=== PATIENT | female | born 1980 | race Caucasian/White ===

== ENCOUNTER → 2020-06-13 10:00 | Outpatient (BNVA) | payer OTHER, SELFPAY | PROVIDERS: PCP Nurse Practitioner Women's Health; Visit Provider Family Medicine | DX: Z13.6 Encounter for screening for cardiovascular disorders (principal); E55.9 Vitamin D deficiency, unspecified; R63.5 Abnormal weight gain | CPT/HCPCS: 80053; 80061; 82306; 84443; 85025 ==

== ENCOUNTER 2020-06-21 11:33 | Outpatient (CLI) | payer OTHER, SELFPAY ==
[2020-06-21 11:41] VITALS: BMI 30.2
--- NOTE | 2020-06-21 11:41 | ECG_ITS ---
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 Interpretive Statements NAME OF STUDY: TREADMILL STRESS TEST INDICATION: Chest Pain, PROCEDURE: At the baseline, the patient's blood pressure was 126/85 with a heart rate of 77. The baseline electrocardiogram showed normal sinus rhythm with normal ST-Ts.. The patient exercised for 8 minutes and 14 seconds on a standard Dannie protocol. Patient attained a maximum heart rate of 165 beats per minute( 91 % of the maximum predicted heart rate) with a blood pressure at the peak exercise of pain 157/78 mm Hg. The EKG at the peak exercise revealed no significant changes. Patient did not have any chest pain or any significant cardiac arrhythmias with the exercise During the recovery phase, there were no new changes. Blood pressure at the end of the recovery phase was 123/63 mm Hg with a heart rate of 98 per minute. CONCLUSION: 1. Normal EKG response to treadmill exercise 2. No exercise-induced chest pain or cardiac arrhythmia 3. Fair exercise tolerance, attained a maximum of 10.2 METs Electronically Signed On 06-24-2020 16:36:09 CDT by Peterson Barroso M.D. [id number]
--- NOTE | 2020-06-21 11:54 | USCV_ITS ---
Marti Joel Age: 40 Gender: F : 1980 Exam Date: 06/21/2020 12:38 Ordering Phys: Peterson Barroso MD ([email or web address]) Technologist: David Raymond Exam Location: [facility] [place] Indication: CHEST PAIN BP: 123 / 70 HR: 89 Rhythm: Sinus Technical Quality: Fair MEASUREMENTS (Male / Female) Normal Values 2D ECHO LV Diastolic Diameter PLAX 3.8 cm 4.2 - 5.9 / 3.9 - 5.3 cm LV Systolic Diameter PLAX 2.3 cm IVS Diastolic Thickness 1.0 cm 0.6 - 1.0 / 0.6 - 0.9 cm IVS Systolic Thickness 1.2 cm LVPW Diastolic Thickness 0.9 cm 0.6 - 1.0 / 0.6 - 0.9 cm LVPW Systolic Thickness 1.1 cm LVOT Diameter 2.3 cm LV Ejection Fraction 2D Teich 72.2 % LA Diameter 3.3 cm LA Width 3.5 cm LA Height 5.1 cm RA Width 3.4 cm RA Height 4.8 cm M-MODE LV Diastolic Diameter MM 4.7 cm 4.2 - 5.9 / 3.9 - 5.3 cm LV Systolic Diameter MM 3.2 cm LV Ejection Fraction MM Teich 61.0 % IVS Diastolic Thickness MM 1.0 cm 0.6 - 1.0 / 0.6 - 0.9 cm IVS Systolic Thickness MM 1.4 cm LVPW Diastolic Thickness MM 1.2 cm 0.6 - 1.0 / 0.6 - 0.9 cm LVPW Systolic Thickness MM 2.0 cm RV Diastolic Diameter MM 1.4 cm Aortic Annulus Diameter 3.7 cm LA Ao Ratio MM 1.0 MV E Point Septal Separation 0.9 cm DOPPLER AV Peak Velocity 125.0 cm/s LVOT Peak Velocity 96.0 cm/s AV Area Cont Eq vti 3.4 cm squared AV Area Cont Eq pk 3.1 cm squared MV Area PHT 5.0 cm squared Mitral E to A Ratio 1.1 MV E' Velocity 14.0 cm/s Mitral E to MV E' Ratio 4.6 Mitral E to LV E' Lateral Ratio 4.4 Mitral E to LV E' Septal Ratio 4.9 TR Peak Velocity 166.0 cm/s TR Peak Gradient 11.0 mmHg TV Peak E Velocity 108.0 cm/s Right Atrial Pressure 3.0 mmHg Pulmonary Artery Systolic Pressu 14.0 mmHg PV Peak Velocity 110.0 cm/s FINDINGS Left Ventricle Normal left ventricular size and systolic function, EF 72%. No gross wall motion normalities.Grade I/IV diastolic dysfunction (abnormal relaxation filling pattern), normal to mildly elevated filling pressures. Right Ventricle The right ventricle is normal in size and function. Right Atrium The right atrium is normal in size. Left Atrium The left atrium is normal in size. Mitral Valve Structurally normal mitral valve without significant stenosis or prolapse. There is no mitral regurgitation. Aortic Valve Thickened aortic valve. Tricuspid Valve Trace tricuspid valve regurgitation. Pulmonic Valve Not visualized well Pericardium Normal pericardium without effusion. Aorta Normal ascending aorta dimension. CONCLUSIONS Normal left ventricular size and systolic function, EF 72%. No gross wall motion normalities. Grade I/IV diastolic dysfunction (abnormal relaxation filling pattern), normal to mildly elevated filling pressures. Structurally normal mitral valve without significant stenosis or prolapse. There is no mitral regurgitation. Thickened aortic valve. Trace tricuspid valve regurgitation. There is no pericardial effusion. There are no intracardiac masses. No previous study is available for comparison. Dr Peterson Barroso MD FACC (Electronically Signed) Final Date: 21 June 2020 17:14 S
[2020-06-21 12:31] VITALS: BP 123/63; PULSE 96
== END 2020-06-21 11:34 | disposition home or self-care (01) ==
LOC: CDL 11:36
PROVIDERS: PCP Nurse Practitioner Women's Health; Visit Provider Internal Medicine Cardiovascular Disease
DX: R07.9 Chest pain, unspecified (principal); I08.2 Rheumatic disorders of both aortic and tricuspid valves
CPT/HCPCS: 93017; 93306

== ENCOUNTER → 2020-06-24 12:59 | Outpatient (BNVA) | payer OTHER, SELFPAY | PROVIDERS: PCP Nurse Practitioner Women's Health; Visit Provider Family Medicine | DX: Z20.828 Contact with and (suspected) exposure to other viral communicable diseases (principal) | CPT/HCPCS: 87635 ==

== ENCOUNTER 2021-04-01 15:21 | Emergency (ER) | payer OTHER, SELFPAY ==
[2021-04-01 15:26] VITALS: BP 147/86; PULSE 74; RESP 16; TEMP 36.2; O2SAT 100; BMI 29.3
--- NOTE | 2021-04-01 15:28 | ECG_ITS ---
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
--- NOTE | 2021-04-01 15:28 | XRR_ITS ---
PROCEDURE INFORMATION: Exam: XR Chest Exam date and time: 04/01/2021 3:28 PM Age: 40 years old Clinical indication: Pain; Angina pectoris; Additional info: Cp TECHNIQUE: Imaging protocol: XR of the chest. Views: 1 view. Total images: 1 COMPARISON: No relevant prior studies available. FINDINGS: Lungs: No visible active interstitial or alveolar airspace disease. Pleural spaces: Unremarkable. No pleural effusion. No pneumothorax. Heart/Mediastinum: Unremarkable. No cardiomegaly. Bones/joints: Unremarkable. XR/XR chest 1V portable [id number] IMPRESSION: Nonacute.
[2021-04-01 15:53] LABS: Basophils % 0.2 %; Eosinophils # 0.2 10^3/uL (0.0-0.8); Hematocrit 41.2 % (37.0-47.0); Hemoglobin 13.8 g/dL (11.5-15.3); Lymphocytes # 3.6 10^3/uL (0.8-4.8); Lymphocytes % 41.6 %; Mean Corpuscular HGB Conc 33.5 g/dL (30.0-36.0); Mean Corpuscular Hemoglobin 32.5 pg (28.0-34.0); Mean Corpuscular Volume 97.2 fL (81-99); Mean Platelet Volume 10.2 fL (7.4-10.4); Monocytes # 0.5 10^3/uL (0.2-0.9); Monocytes % 5.7 %; Neutrophils # 4.36 10^3/uL (1.8-7.7); Neutrophils % 50.3 %; Nucleated Red Blood Cells % 0 %; Platelet Count 250 10^3/cmm (130-400); Red Blood Count 4.24 10^6/uL (4.1-5.3); Red Cell Distribution Width 13.2 % (12.1-15.1); White Blood Count 8.7 10^3/uL (4.0-10.0)
[2021-04-01 16:09] LABS: HCG Qualitative Urine. Negative (Negative)
--- NOTE | 2021-04-01 16:09 | ED_ITS ---
HPI - Chest Pain General: Chief Complaint: Chest Pain Stated Complaint: chest pain Time Seen by Provider: 04/01/21 15:29 History of Present Illness: HPI narrative: Patient is a 40-year-old female with past medical history anxiety comes to the ER complaining of bilateral chest pain like a strip over the lower part of her chest which radiated to her neck bilaterally and her back bilaterally. She says she took four baby aspirin's prior to arrival. She last had an episode of this in April of last year. She saw cardiology in the fall and had a negative stress test and echocardiogram showed grade 1 diastolic dysfunction. She also saw Dr. Barroso a couple weeks ago who recommended no intervention unless she had more chest pain. Upon my exam she says her chest pain resolved when she arrived to the ER. She has no chest pain at the moment. She does says she has a headache and when they were taking her back to the room she has peripheral vision loss on the left side. She says she occasionally gets migraines and has strokelike symptoms with them. Associated symptoms: Deny abdominal pain, dyspnea or palpitations Review of Systems General: Reports: 10 or more systems reviewed and unremarkable except in HPI and below Const: Denies: fatigue Eyes: Denies: change in vision, blurry vision or eye redness ENMT: Denies: throat pain, swelling of lips/tongue, ear or mastoid pain or nasal congestion Card: Denies: chest pain, palpitations, irregular heart rhythm, edema, dyspnea on exertion or orthopnea Resp: Denies: dyspnea, productive cough or non-productive cough GI: Denies: abdominal pain, diarrhea or GI cramping : Denies: flank pain, difficulty voiding, urinary frequency or urinary urgency Musc: Denies: neck pain, back pain, extremity pain, joint pain, joint redness, limited range of motion or muscle weakness Skin/Breast: Denies: rash, pruritus, erythema, skin pain or skin tenderness Neuro: Reports: headache(s); Denies: numbness in extremities, weakness in extremities, sensory changes, difficulty walking, dizziness, confusion or Slurred speech present Psych: Denies: anxiety or depression Endo: Denies: polyuria All/Imm: Denies: urticaria, throat swelling or tongue swelling PFSH ED PFSH: Medical History Anxiety Atypical chest pain Endometriosis Left ventricular diastolic dysfunction Migraine No pertinent past medical history neghx: htn,dm,thyroid,dvt/pe PCP: Dr. Chen Smoking Surgical History H/O exploratory laparotomy (~01/10/07) Dx laparascopy, left oophorectomy, ablation of endometriosis. Findings: Dermoid cyst of left ovary, endometriosis on the posterior surface of the cervix. H/O removal of cyst Family History Mother Hypercholesteremia Ovarian cancer dx age 36 Uterine cancer dx age 36 Clotting disorder Bleeding disorder Stroke Cancer Lung disease Grandmother Stroke Paternal CAD (coronary artery disease) Family/Other Cancer Father Dementia Lung disease Denies family history of Colon cancer Diabetes Chronic kidney disease (CKD) Breast cancer Suicide Anesthesia complication Hypertension Thyroid disease Physical Exam Const: COMMON NORMALS: no acute distress, average body habitus, patient oriented x3, no limitations, healthy appearing, alert and well nourished GENERAL APPEARANCE: cooperative, comfortable, well kempt, well developed and anxious ORIENTATION/CONSCIOUSNESS: Yes awake, Yes oriented to person, Yes oriented to place and Yes oriented to time HENMT: COMMON NORMALS: normocephalic, external ears normal and Normal external nose present HEAD & SCALP: normal to inspection and normocephalic NOSE: Normal external nose present EXTERNAL EAR: Yes external ears normal MOUTH: Normal oral and palatal mucosa present THROAT: posterior oropharynx normal Eye: COMMON NORMALS: Equal, round and reactive pupils present and EOMs intact bilaterally GENERAL EYE: appearance normal, both eyes and all related structures PUPIL: Yes Equal, round and reactive pupils present Neck/C-Spine: COMMON NORMALS: full ROM, no lymphadenopathy, no meningeal signs and no JVD GENERAL: Yes normal visual inspection Lymph: LYMPHATIC: no lymphadenopathy noted Chest: COMMONS NORMALS: normal inspection of the chest and normal palpation of entire chest wall Resp: COMMON NORMALS: normal respiratory effort, No retractions, No use of accessory muscles, clear to auscultation bilaterally and percussion normal EFFORT & INSPECTION: Yes able to speak in complete sentences AUSCULTATION: clear to auscultation bilaterally PERCUSSION: percussion normal Cardio: COMMON NORMALS: no JVD, regular rate, regular rhythm, S1 normal heart sound present, S2 normal heart sound present and Peripheral pulses 2+ throughout RATE: regular rate RHYTHM: regular rhythm HEART SOUNDS: S1 normal heart sound present and S2 normal heart sound present PERIPHERAL PULSES: Peripheral pulses 2+ throughout GI: COMMON NORMALS: Normal to inspection, nondistended, normoactive bowel sounds present, Soft to palpation, non-tender and no masses INSPECTION: Yes normal to inspection PALPATION: Yes Soft to palpation : COMMON NORMALS: Yes no CVA tenderness BLADDER/KIDNEY EXAM: Yes no CVA tenderness Back/Pelvis: COMMON NORMALS: no CVA tenderness, thoracic and lumbar spine normal to inspection, no thoracic nor lumbar tenderness and thoraco-lumbar ROM normal Extremity: COMMON NORMALS: normal to inspection, full ROM, capillary refill normal, no joint enlargement and no pedal edema GENERAL: Yes normal exam except as noted Neuro: COMMON NORMALS: patient oriented x3, CN's II-XII intact bilaterally, moves all extremities, no focal motor deficits, no sensory deficits noted and gait normal SENSORIUM/ORIENTATION: Yes alert, Yes oriented to person, Yes oriented to place and Yes oriented to time MENINGEAL SIGNS: Yes no meningeal signs Psych: COMMON NORMALS: mental status grossly normal, Normal thought process present, cooperative, normal affect and speech normal APPEARANCE: Yes well kempt ATTITUDE: Yes calm SPEECH: Yes normal speech THOUGHT PROCESS: Normal thought process present Skin: COMMON NORMALS: no rashes or lesions noted GENERAL SKIN EXAM: no rashes or lesions noted Course Vital Signs: Vital signs: Vital Signs Temperature 97.1 F L 04/01/21 15:26 Pulse Rate 74 04/01/21 19:57 Respiratory Rate 20 H 04/01/21 19:57 Blood Pressure 148/83 04/01/21 19:57 Pulse Oximetry 100 04/01/21 19:57 MDM - Chest Pain MDM Narrative: Medical decision making narrative: Patient came in complaining of atypical chest pain. It resolved before I even saw her. She also complained of headache with loss of peripheral vision on the left side. This also resolved within a few minutes after arrival. Likely a migraine. She says she has migraines with strokelike symptoms. She has never seen a neurologist. I placed a case management referral to help her get in with Dr. Ramirez. Also discussed with Dr. Barroso who recommended no acute intervention as her work-up is negative. Recommended he call her clinic tomorrow and get an appointment with him. ER with worsening symptoms at any time Lab Data: Labs: Lab Results 04/01/21 04/01/21 04/01/21 Range/Units 15:38 15:38 15:38 WBC 8.7 (4.0-10.0) 10^3/ uL RBC 4.24 (4.1-5.3) 10^6/u L Hgb 13.8 (11.5-15.3) g/dL Hct 41.2 (37.0-47.0) % MCV 97.2 (81-99) fL MCH 32.5 (28.0-34.0) pg MCHC 33.5 (30.0-36.0) g/dL RDW 13.2 (12.1-15.1) % Plt Count 250 (130-400) 10^3/c mm MPV 10.2 (7.4-10.4) fL Neut % (Auto) 50.3 % Lymph % (Auto) 41.6 % [place] % (Auto) 5.7 % Eos % (Auto) 2.0 % Baso % (Auto) 0.2 % Neut # (Auto) 4.36 (1.8-7.7) 10^3/u L Lymph # (Auto) 3.6 (0.8-4.8) 10^3/u L [place] # (Auto) 0.5 (0.2-0.9) 10^3/u L Eos # (Auto) 0.2 (0.0-0.8) 10^3/u L Baso # (Auto) 0.0 (0.0-0.1) 10^3/u L Nucleated RBC % (a uto) 0 % Nucleated RBCs # 0.0 /100WBC D-Dimer (0-0.59) ug/mIFE U Sodium Cancelled Potassium Cancelled Chloride Cancelled Carbon Dioxide Cancelled Anion Gap Cancelled BUN Cancelled Creatinine Cancelled GFR Calculation Cancelled Glucose Cancelled Calculated Osmolal ity Cancelled Calcium Cancelled Total Bilirubin Cancelled AST Cancelled ALT Cancelled Alkaline Phosphata se Cancelled Troponin T Baselin e Cancelled Troponin T 120 Min chene[place] (0-10) ng/L Delta Troponin T (0-10) ABS# Total Protein Cancelled Albumin Cancelled Globulin Cancelled HCG, Qual (Negative) Urine Color (Yellow) Urine Appearance (CLEAR) Urine pH (5-7) Ur Specific Gravit y (1.005-1.030) Urine Protein (Negative) Urine Glucose (UA) (Normal) Urine Ketones (Negative) Urine Blood (Negative) Urine Nitrate (Negative) Urine Bilirubin (Negative) Urine Urobilinogen (Negative) mg/dL Ur Leukocyte Estella ase (Negative) 04/01/21 04/01/21 04/01/21 Range/Units 15:54 15:54 16:00 WBC (4.0-10.0) 10^3/ uL RBC (4.1-5.3) 10^6/u L Hgb (11.5-15.3) g/dL Hct (37.0-47.0) % MCV (81-99) fL MCH (28.0-34.0) pg MCHC (30.0-36.0) g/dL RDW (12.1-15.1) % Plt Count (130-400) 10^3/c mm MPV (7.4-10.4) fL Neut % (Auto) % Lymph % (Auto) % [place] % (Auto) % Eos % (Auto) % Baso % (Auto) % Neut # (Auto) (1.8-7.7) 10^3/u L Lymph # (Auto) (0.8-4.8) 10^3/u L [place] # (Auto) (0.2-0.9) 10^3/u L Eos # (Auto) (0.0-0.8) 10^3/u L Baso # (Auto) (0.0-0.1) 10^3/u L Nucleated RBC % (a uto) % Nucleated RBCs # /100WBC D-Dimer 0.30 (0-0.59) ug/mIFE U Sodium Potassium Chloride Carbon Dioxide Anion Gap BUN Creatinine GFR Calculation Glucose Calculated Osmolal ity Calcium Total Bilirubin AST ALT Alkaline Phosphata se Troponin T Baselin e Troponin T 120 Min [place] (0-10) ng/L Delta Troponin T (0-10) ABS# Total Protein Albumin Globulin HCG, Qual Negative (Negative) Urine Color Straw (Yellow) Urine Appearance Clear (CLEAR) Urine pH 7 (5-7) Ur Specific Gravit y 1.005 (1.005-1.030) Urine Protein Neg (Negative) Urine Glucose (UA) Norm (Normal) Urine Ketones Negative (Negative) Urine Blood Neg (Negative) Urine Nitrate Negative (Negative) Urine Bilirubin Neg (Negative) Urine Urobilinogen Norm (Negative) mg/dL Ur Leukocyte Estella ase Negative (Negative) 04/01/21 04/01/21 04/01/21 Range/Units 16:00 16:00 18:05 WBC (4.0-10.0) 10^3/ uL RBC (4.1-5.3) 10^6/u L Hgb (11.5-15.3) g/dL Hct (37.0-47.0) % MCV (81-99) fL MCH (28.0-34.0) pg MCHC (30.0-36.0) g/dL RDW (12.1-15.1) % Plt Count (130-400) 10^3/c mm MPV (7.4-10.4) fL Neut % (Auto) % Lymph % (Auto) % [place] % (Auto) % Eos % (Auto) % Baso % (Auto) % Neut # (Auto) (1.8-7.7) 10^3/u L Lymph # (Auto) (0.8-4.8) 10^3/u L [place] # (Auto) (0.2-0.9) 10^3/u L Eos # (Auto) (0.0-0.8) 10^3/u L Baso # (Auto) (0.0-0.1) 10^3/u L Nucleated RBC % (a uto) % Nucleated RBCs # /100WBC D-Dimer (0-0.59) ug/mIFE U Sodium 136 Potassium 3.7 Chloride 100 Carbon Dioxide 21 L Anion Gap 18.7 BUN 8 Creatinine 0.6 GFR Calculation 110.7 Glucose 84 Calculated Osmolal ity 280 L Calcium 9.2 Total Bilirubin 0.4 AST 22 ALT 14 Alkaline Phosphata se 74 Troponin T Baselin e 6 Troponin T 120 Min [place] 6.00 (0-10) ng/L Delta Troponin T 0 (0-10) ABS# Total Protein 6.5 L Albumin 4.5 Globulin 2.0 HCG, Qual (Negative) Urine Color (Yellow) Urine Appearance (CLEAR) Urine pH (5-7) Ur Specific Gravit y (1.005-1.030) Urine Protein (Negative) Urine Glucose (UA) (Normal) Urine Ketones (Negative) Urine Blood (Negative) Urine Nitrate (Negative) Urine Bilirubin (Negative) Urine Urobilinogen (Negative) mg/dL Ur Leukocyte Estella ase (Negative) Discharge Plan Discharge Patient Disposition: Home Clinical Impression: Atypical chest pain, Migraine Condition: Stable Prescriptions: No Action sumatriptan succinate 100 mg tablet 100 mg PO Q2H PRNRF: 0 One Daily Women's 27-0.4 mg tablet PO DAILY RF: 0 vitamin B complex Tablet 1 tab PO DAILY RF: 0 collagen PO DAILY RF: 0 medroxyprogesterone [Depo-Provera] 150 mg/mL suspension 150 mg IM .every 90 days Qty: 1 RF: 3 escitalopram oxalate 20 mg tablet See Rx Instructions .ROUTE .COMPLEX Qty: 90 RF: 3 Discharge Orders: Discharge ED (Routine); Ordered 04/01/21 Ordered By: Mason Laird Referrals: Molly Wilkins APN, SUMAN [Primary Care Provider] - Discharge Diet: Advance as tolerated Discharge Activity: Resume usual activity Patient Instructions: Chest Pain (ED), Migraine Headache (ED), Opioid Safety Activity Restrictions/Additional Instructions: You have had an episode of atypical chest pain. Thankfully it resolved before I saw you. Your chest pain work-up has been negative and EKGs are normal. Please follow-up with Dr. Barroso and call him tomorrow for an appointment. Return to the ER if your symptoms return. Also you have had a migraine. I placed a case management referral to help you get an appointment with a neurologist as well. Return to the ER at anytime with worsening symptoms. Otherwise follow-up with your primary care physician later this week to monitor improvement of your symptoms. Coding Level of Care Code ED Marble Installer for Neo Fwd Exam Comprehensive
[2021-04-01 16:11] LABS: Add Urine Microscopic? NO; Charge for UA Resulting for Rev
--- NOTE | 2021-04-01 16:17 | CTR_ITS ---
PROCEDURE INFORMATION: Exam: CT Head Without Contrast Exam date and time: 04/01/2021 4:17 PM Age: 40 years old Clinical indication: Pain; Visual disturbance; Headache; Additional info: Headache. Visual loss left side TECHNIQUE: Imaging protocol: Computed tomography of the head without contrast. Total images: 188 Radiation optimization: All CT scans at this facility use at least one of these dose optimization techniques: automated exposure control; mA and/or kV adjustment per patient size (includes targeted exams where dose is matched to clinical indication); or iterative reconstruction. COMPARISON: No relevant prior studies available. RADIATION DOSE METRICS: Total DLP (mGy-cm): 773.39 FINDINGS: Brain: No evidence of active or acute intracranial pathologic process, hemorrhage, or trauma. No visible evidence of diffuse cerebral edema or generalized demyelination. No visible hyperdense MCA or insular ribbon sign. No mass effect. No midline shift. Cerebral ventricles: No ventriculomegaly. Paranasal sinuses: Evidence of mild chronic ethmoid sinusitis. No visible evidence of active paranasal sinus disease within the field of view. Mastoid air cells: Visualized mastoid air cells are well aerated. Bones/joints: Unremarkable. No acute fracture. Soft tissues: Unremarkable. CT/CT head wo con* [id number] IMPRESSION: No evidence of active or acute intracranial pathologic process, hemorrhage, or trauma. Radiation Dose CTDIVOL = (mGy): DLP = 773.39 (mGy-cm)
[2021-04-01 16:24] LABS: Bilirubin Urine Neg (Negative); Blood Urine Neg (Negative); Glucose Urine UA Norm (Normal); Ketones Urine Negative (Negative); Leukocyte Esterase Urine Negative (Negative); Nitrate Urine Negative (Negative); Protein Urine Neg (Negative); Specific Gravity, Urine 1.005 (1.005-1.030); Urine Appearance Clear (CLEAR); Urine Color Straw (Yellow); Urobilinogen Urine Norm (Negative); pH Urine 7 (5-7)
[2021-04-01] MEDS: ketorolac 30 mg/mL INJ 15 MG IVP ×2 (16:26→20:33)
[2021-04-01] MEDS: diphenhydrAMINE 50 mg/mL SDV 1mL 25 MG IVP (16:26)
[2021-04-01] MEDS: sodium chloride 0.9% 1,000 ML 999 ML IV (16:27)
[2021-04-01 16:45] LABS: Alanine Aminotransferase 14 U/L (0-33); Albumin Level 4.5 g/dL (3.5-5.2); Alkaline Phosphatase 74 IU/L (35-105); Anion Gap 18.7 (5-19); Aspartate Amino Transferase 22 U/L (0-32); Blood Urea Nitrogen 8 mg/dL (6-20); Calcium 9.2 mg/dL (8.5-10.5); Carbon Dioxide 21 mmol/L (22-29); Chloride 100 mmol/L (98-107); Creatinine Clr Calc Pharmacy 149.1947; Glomerular Filtration Rate 110.7 mL/min (90-130); Glucose 84 mg/dL (65-115); Osmolality Calculated 280 mOsm/kg (285-295); Potassium 3.7 mmol/L (3.5-5.1); Sodium 136 mmol/L (136-145); Total Bilirubin 0.4 mg/dL (0.15-1.2); Total Protein 6.5 g/dL (6.6-8.7)
[2021-04-01 16:46] LABS: Troponin(5th) Baseline 6 ng/L (0-10)
--- NOTE | 2021-04-01 17:28 | ECG_ITS ---
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
[2021-04-01 19:06] VITALS: BP 118/85; PULSE 84; RESP 18; O2SAT 97
[2021-04-01 19:17] LABS: Troponin 5 2HR Delta 0 ABS# (0-10)
[2021-04-01 19:57] VITALS: BP 148/83; PULSE 74; RESP 20; O2SAT 100
[2021-04-01 21:00] VITALS: BP 128/92; PULSE 74; RESP 18; O2SAT 97
== END 2021-04-01 21:01 | disposition home or self-care (01) ==
PROVIDERS: Emergency Provider Family Medicine; PCP Nurse Practitioner Women's Health
DX: R07.89 Other chest pain (principal); G43.909 Migraine, unspecified, not intractable, without status migrainosus
CPT/HCPCS: 36415; 70450; 71045; 80053; 81003; 81025; 84484; 85025; 85378; 93005; 96361; 96374; 96376; 99284; J1200; J1885; J7030

== ENCOUNTER → 2021-04-23 10:34 | Outpatient (BNVA) | payer OTHER, SELFPAY | PROVIDERS: PCP Nurse Practitioner Women's Health; Referring Provider Internal Medicine Cardiovascular Disease; Visit Provider Internal Medicine Cardiovascular Disease | DX: R07.89 Other chest pain (principal); Z20.822 Contact with and (suspected) exposure to COVID-19 | CPT/HCPCS: 80048; 85025; 85610; 86850; 86900; 87635 ==

== ENCOUNTER 2021-04-28 07:13 | Day surgery (SDC) | payer OTHER, SELFPAY ==
[2021-04-28] VITALS (14 sets, daily range): BP systolic 98–121; BP diastolic 56–88; PULSE 64–72; RESP 13–19; TEMP 36.6; O2SAT 96–99; BMI 29.7
--- NOTE | 2021-04-28 07:00 | XACV_ITS ---
Ht: 175 cm Wt: 91 kg BSA: 2.13 m2 Gender: Female : 1980 Any Known Allergies: Other Exam Priority: Routine Procedure(s): Procedure Description: Diagnostic procedure Procedure Description: Left Heart Catheterization Procedure Description: Left ventriculography Procedure Description: Coronary Angiography Diagnostic Cath Status: Elective Diagnostic Findings * Left main is a medium caliber vessel with no significant stenotic lesions. * Left anterior descending artery is a medium caliber vessel which appears to taper off towards the LV apex. The mid LAD was found to have a segment of extrinsic compression causing 50 to 60% luminal narrowing. * Left circumflex artery is a codominant, medium to large caliber vesselwith no significant stenotic lesions. * The right coronary artery is a medium caliber codominant vessel which has a high and posterior takeoff. Nonselective injection of this artery revealed a patent vessel with no significant stenotic lesions. Conclusions 1. This is a 41-year-old white female presenting with recurrent episodes of chest pain requiring multiple ER visits. She had an exercise stress echo which was unremarkable. In view of her ongoing symptoms requiring ER visits, in order to further evaluate the coronary status, a cardiac catheterization was recommended. Patient underwent left heart catheterization with left and right coronary angiogram. The findings are as follows.. 2. 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 The right coronary artery was found to have a high and posterior takeoff. No other significant stenotic lesions or abnormalities. LVEDP was 20 mmHg- left ventricular diastolic dysfunction. LV ejection fraction 60%. Diagnostic RX Recommendation: medical therapy and/or counseling LV EDP: 20 mmHg Ventriculography Ejection Fraction: 60.0 % Left Ventriculography Findings: * The LV gram was performed the LOPEZ projection. LV cavity appears to be of normal size. The overall ejection fraction was around 60%. The LVEDP prior to the LV angiogram was 20 mmHg. No significant valve prolapse or mitral regurgitation. Pressures Phase:Rest AO : 98 / 44 ( 59 ) @ 7:41:00 AM 122 / 23 ( 55 ) @ 7:58:00 AM LV : 130 / -6 / 20 @ 7:57:00 AM 185 / 38 / 110 @ 7:58:00 AM Clinical Evaluation EBL: 5mL-10mL Procedural Details Pre-Procedure Time Out. Identified patient by full name and date of as verbalized by the patient/guarantor. Does the consent match the physician's order: Yes. Accurate & Complete Informed Consent: Yes. Inpatient/Outpatient History & Physical on Chart: Yes. If H&P is completed, is and addenduem needed: Yes; If yes, is the addendum complete: N/A. Visualize and Verify Site with Patient/Guarantor: N/A. Relevant Radiology Images available: N/A. Pre-op teaching completed and patient verbalized understanding. The risks, benefits, and alternatives of sedation and/or procedure were discussed by physician. The patient agrees to continue. Procedure started. [facility] Clinical Fraility Score: 4: Vulnerable. Parts Analyst Indications: Worsening Angina. Chest Pain Symptom Assessment: Atypical Angina. Cardiovascular Instability: No. Correct patient, site and procedure confirmed by cath team. PERRLA. Strong, equal hand rod piler bilaterally. Lungs clear x 5 lobes. IV Site on Arrival: 20 gauge in the left anticubital. IV Fluids: 0.9% NaCl at KVO. 0 mL infused prior to catheter builder. Oxygen started at 2liters/min via nasal canula. right groin was prepped with chloroprep then draped in the usual sterile fashion. right radial was prepped with chloroprep then draped in the usual sterile fashion. Physician arrived. Equipment: 6F - Radial. Cardiac Cath Pack. ACIST Manifold Kit Model BT 2000. Heparinized Saline (2 units/mL), 1000 mL bag. Baseline sample Acquired. HR: 68 BPM. Physician scrubbed in. Immediate Pre-Procedure Time Out. Correct Patient: Yes; Correct Procedure: Yes; Correct Site: Yes; Correct Patient Position: Yes; Correct Supplies: Yes; Dried Flammable Prep: Yes; Blood Products Available: N/A;. Lidocaine 1% infiltrated to the right radial. Arterial access obtained. A [employer]um[employer] 5 Fr Pierre Radial Catheter, 110cm was advanced over the wire and used for Left coronary angiography. Multiple views taken of left coronary artery. Catheter redirected to the RCA. Catheter removed over the exchange wire. A 5 st helenian JR4 catheter in over wire. Catheter removed over the exchange wire. A 5 st helenian AR MOD catheter in over wire. Catheter removed over the exchange wire. A 5 st helenian Angled Pig catheter in over wire. EDP Sample taken: LV 130/-7,20; HR: 62 BPM; SpO2: 100%. LV gram performed in LOPEZ @ 10 mL/second for a total of 30 mL. EDP Sample taken: LV 185/38,110; HR: 67 BPM; SpO2: Off%. Pullback taken: LV Off; AO Off; Mean: , Peak to Peak: , SEP: ; HR: 69 BPM; SpO2: Off%. Catheter removed over the exchange wire. Physician scrubbed out. A TR Band was successful obtaining hemostatsis at the Right Radial artery insertion site. TR band placed. Hemostasis obtained. Post Procedure: Pulses reassessed and unchanged. PERRLA. Strong, equal hand rod piler bilaterally. No VTE prophylaxis required. Medication's Wasted: Lidocaine 1% = 18 mL. Total IV fluids: 250 mL. Medication's Wasted: Nitro = 49.8 mg. Medication's Wasted: Heparin = 1000 units. Contrast type used: Omnipaque 300 mgI/mL, 500 mL bottle. Contrast type used: Omnipaque 300 mgI/mL, 500 mL bottle. Post-op diagnosis: myocardial bridge,. Complications: none. Estimated blood loss: 5mL-10mL. Procedure completed. Patient transferred by wheelchair to CPRU. Vital chart was stopped. Access Site Site: Right Radial artery Sheath Size: 6 Fr Hemostasis Method: TR Band Hemostasis Success: Successful Procedure Medications Start: 8:30 AM Stop: 8:30 AM Medication: Versed Amount: 1 mg Route: I.V. Start: 8:30 AM Stop: 8:30 AM Medication: Fentanyl Amount: 50 mcg Route: I.V. Start: 8:37 AM Stop: 8:37 AM Medication: Verapamil Amount: 5 mg Route: I.A. Start: 8:38 AM Stop: 8:38 AM Medication: Nitrogylcerin Amount: 100 mcg Route: I.A. Start: 8:37 AM Stop: 8:37 AM Medication: 0.9% Saline Amount: 250 ml Route: I.V. bolus Start: 8:41 AM Stop: 8:41 AM Medication: Heparin Amount: 5000 units Route: I.V. Start: 8:41 AM Stop: 8:41 AM Medication: Versed Amount: 1 mg Route: I.V. Start: 8:41 AM Stop: 8:41 AM Medication: Fentanyl Amount: 50 mcg Route: I.V. I, the attending physician, have reviewed and verified all procedure medications. Yes, all medications given per verbal order History/Risk Factors Hypertension: Yes Dyslipidemia: No Peripheral Arterial Disease (PAD): No Myocardial Infarction (AK): No Obesity: No Renal Disease: No Tobacco Use: Current/Recent(w/in 1 year) Prior Interventions PCI: No CABG: No Valve Surgery: No Report Signatures Finalized by Dr Peterson Barroso MD FACC on 04/28/2021 06:46 PM
[2021-04-28] MEDS: diphenhydrAMINE 50 mg Capsule PO (07:32)
--- NOTE | 2021-04-28 08:00 | W.PM.OPSUD ---
Surgery/Procedure H&P Update DATE OF PROCEDURE: April 28, 2021 DATE H&P PERFORMED: 04/03/21 H&P UPDATE INFORMATION: I have reviewed H&P completed within last 30 days, I have examined patient prior to procedure and No changes to prior documentation PREOP DIAGNOSIS: ASHD PRIMARY INDICATION FOR PROCEDURE: Recurrent episodes of chest pain, requiring ER visits PLANNED PROCEDURE: Operation Date: 04/28/21 08:30 Proposed Procedures p left Cardiac Catheterization 74075 r07.89(Left) - Peterson Barroso MD PATIENT REASSESSED PRIOR TO SEDATION, WITH NO CHANGE NOTED: Yes PHYSICAL EXAM: alert, clear to auscultation bilaterally and regular rate & rhythm AIRWAY EVAL/ANESTHESIA PLAN: normal airway, see other exam findings, ASA II, Monitored Anesthesia, Local Anesthesia, Risks, benefits & alternatives of sedation and/or procedure discussed and Patient agrees to continue as planned
--- NOTE | 2021-04-28 09:00 | SUR.PHASEII ---
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 Patient ambulated to the bed from [facility] wheelchair without difficulty. desk monitor placed and vital signs obtained. Patient A & O x 3. TR band intact to he right wrist withh no bleeding or hematoma noted. Palpable radial pulse. No other assessment changes noted from pre cath assessment.
--- NOTE | 2021-04-28 09:52 | SUR.PHASEII ---
Breakfast to the patient
--- NOTE | 2021-04-28 10:00 | SUR.PHASEII ---
Patient ambulated to the restroom to void without difficultly. Then back to the room. Letting the air out of the band per protocol. Dr. Barroso was also here to see the patient while she was in the restroom. He stated that he would be back to see the patient prior to discharge.
--- NOTE | 2021-04-28 11:05 | SUR.PHASEII ---
TR band off. Site cleansed with water and patted dry. A large band aid was applied to the site. Patient tolerated well.
--- NOTE | 2021-04-28 12:22 | SUR.PHASEII ---
Dr. Barroso at bedside.
== END 2021-04-28 12:43 | disposition home or self-care (01) ==
PROVIDERS: PCP Nurse Practitioner Women's Health; Visit Provider Internal Medicine Cardiovascular Disease
DX: Q24.5 Malformation of coronary vessels (principal); R07.89 Other chest pain; F41.9 Anxiety disorder, unspecified; F17.210 Nicotine dependence, cigarettes, uncomplicated; I11.0 Hypertensive heart disease with heart failure; I50.9 Heart failure, unspecified
CPT/HCPCS: 36415; 93452; C1769; C1887; C1894; J1644; J2250; J3010; J3490; J7030; Q0163; Q9967

== ENCOUNTER 2021-05-01 08:01 | Outpatient (CLI) | payer OTHER, SELFPAY ==
--- NOTE | 2021-05-01 08:30 | MM_ITS ---
WS: [id number] Bilateral screening digital mammogram, 05/01/2021 Clinical Data: Z12.39 - Encounter for other screening for malignant neop... Comparison: None. Findings: The breast parenchymal pattern shows fibroglandular tissue No spiculated masses or clustered calcific ations are seen. There are no secondary signs of carcinoma. MM/[place] [id number] Impression: 1. Negative bilateral mammogram with no prior exam for review. 2. Recommend annual screening mammograms. BIRADS: 1-Negative FOLLOW UP: 1 Year Follow-up The CAD receiving dock checker was used.
== END 2021-05-01 08:02 | disposition home or self-care (01) ==
LOC: RADSHAW 08:05
PROVIDERS: PCP Family Medicine; Visit Provider Nurse Practitioner Women's Health
DX: Z12.31 Encounter for screening mammogram for malignant neoplasm of breast (principal)
CPT/HCPCS: 77067

== ENCOUNTER → 2021-05-05 09:00 | Outpatient (BNVA) | payer OTHER, SELFPAY | PROVIDERS: PCP Family Medicine; Visit Provider Nurse Practitioner Family | DX: R07.89 Other chest pain (principal) | CPT/HCPCS: 80048 ==

== ENCOUNTER → 2021-07-07 12:02 | Outpatient (BNVA) | payer OTHER, SELFPAY | PROVIDERS: PCP Family Medicine; Visit Provider Nurse Practitioner Family | DX: Z20.822 Contact with and (suspected) exposure to COVID-19 (principal) | CPT/HCPCS: 87635 ==

== ENCOUNTER → 2021-09-03 10:01 | Outpatient (BNVA) | payer OTHER, SELFPAY | PROVIDERS: PCP Family Medicine; Visit Provider Internal Medicine | DX: Z20.822 Contact with and (suspected) exposure to COVID-19 (principal) | CPT/HCPCS: 87635 ==

== ENCOUNTER 2021-09-12 13:41 | Emergency (ER) | payer OTHER, SELFPAY ==
[2021-09-12 13:53] VITALS: BP 144/84; PULSE 74; RESP 16; TEMP 37; O2SAT 100
--- NOTE | 2021-09-12 15:17 | XR_ITS ---
WS: [id number] Portable AP upright chest, 09/12/2021 Clinical Data: chest pain Comparison: Portable chest, 04/01/2021. Findings: No nodules, masses or effusions are seen. The heart is normal. The pulmonary vascularity is not increased. No pneumonia or pneumothorax is seen. XR/XR chest 1V portable [id number] Impression: Negative chest.
--- NOTE | 2021-09-12 16:15 | W.ED.CHESTPA ---
HPI - Chest Pain General: Chief Complaint: Chest Pain Stated Complaint: CP, VOMITING 2 DAYS AGO Time Seen by Provider: 09/12/21 15:46 History of Present Illness: HPI narrative: Ms. Joel is a 41-year-old lady with history of hypertension who presents to the emergency department due to epigastric pain. She has been dealing with burning epigastric pain for a number of months now and is gotten to the point that she is missed work. She endorses burning sensation in the epigastric region which radiates up to the chest. She endorses 2 episodes of dark red hematemesis yesterday which prompted her to come in. No bright red blood no changes with stool. Typically episodes improved after 15 minutes however this 1 was more constant. Mild radiation to back. Intensity is moderate to severe. No other signs of systemic illness, changes in health, exacerbating or alleviating factors. She has not had endoscopy for her symptoms. Review of Systems General: Reports: 10 or more systems reviewed and unremarkable except in HPI and below PFSH ED PFSH: Medical History Anxiety Atypical chest pain Coronary-myocardial bridge Endometriosis Left ventricular diastolic dysfunction Migraine No pertinent past medical history neghx: htn,dm,thyroid,dvt/pe PCP: Dr. Chen Smoking Surgical History H/O exploratory laparotomy (~01/10/07) Dx laparascopy, left oophorectomy, ablation of endometriosis. Findings: Dermoid cyst of left ovary, endometriosis on the posterior surface of the cervix. H/O removal of cyst Family History Mother Hypercholesteremia Ovarian cancer dx age 36 Uterine cancer dx age 36 Clotting disorder Bleeding disorder Stroke Cancer Lung disease Grandmother Stroke Paternal CAD (coronary artery disease) Family/Other Cancer Father Dementia Lung disease Denies family history of Colon cancer Diabetes Chronic kidney disease (CKD) Breast cancer Suicide Anesthesia complication Hypertension Thyroid disease Physical Exam Narrative: EXAM NARRATIVE: GENERAL/CONSTITUTIONAL - well-appearing. Uncomfortable. Eyes - PERRL, no conjunctival injection ENMT - Atraumatic external nose and ears. Moist mucous membranes NECK - supple. trachea midline CARDIOVASCULAR - regular rate and rhythm. RESPIRATORY -clear to auscultation bilaterally. ABDOMEN/GI -mild tenderness in epigastric region.Nondistended. No tenderness to percussion or evidence of peritonitis MSK - Extremities without obvious deformity or tenderness to palpation SKIN - Warm, Dry NEURO - alert and appropriately oriented. Moves all extremities equally. Course ED course: - Patient was seen and evaluated by me at bedside - Patient placed on cardiac monitors, IV access obtained - Initial evaluation notable for no acute distress, nontoxic appearance. -Symptom treatment - Labs notable for no leukocytosis. Stable hemoglobin with normal blood pressure and heart rate. Metabolic panel with minimally decreased bicarb and increased anion gap. Lipase is normal. Initial troponin is negative with greater than 6 hours of symptoms - Imaging notable for no acute finding on chest x-ray. No acute abnormality to explain patient's symptoms on CT abdomen pelvis. Hepatic steatosis discussed. - Upon serial reexamination after treatment the patient was improved mildly - Based on patient history, evaluation, labs, and imaging as interpreted the most likely cause of the patient's condition is epigastric pain and chest pain with hematemesis. Given duration of symptoms patient does require endoscopy, most likely related to ulcers versus gastric irritation. Case management request for GI follow-up placed. Patient will be started on PPI. - The results of ED evaluation were discussed with the patient including prescriptions and/or symptomatic cares (if applicable) including appropriate and responsible use, followup plan, and return precautions. The patient verbalized understanding and felt safe for discharge. - Patient discharged in satisfactory condition. Vital Signs: Vital signs: Vital Signs Temperature 98.6 F 09/12/21 13:53 Pulse Rate 74 09/12/21 13:53 Respiratory Rate 16 09/12/21 13:53 Blood Pressure 144/84 09/12/21 13:53 Pulse Oximetry 100 09/12/21 13:53 MDM - Chest Pain Medical Records: Attestation: I reviewed the patient's medical records. Lab Data: Attestation: I reviewed the patient's lab results. Labs: Lab Results 09/12/21 09/12/21 09/12/21 16:48 16:48 16:48 WBC 8.3 10^3/uL 10^3/ uL (4.0-10.0) RBC 4.33 10^6/uL 10^6 /uL (4.1-5.3) Hgb 14.1 g/dL g/dL (11.5-15.3) Hct 40.7 % % (37.0-47.0) MCV 94.0 fl fl (81-99) MCH 32.6 pg pg (28.0-34.0) MCHC 34.6 g/dL g/dL (30.0-36.0) RDW 12.6 % % (12.1-15.1) Plt Count 262 10^3/cmm 10^3 /cmm (130-400) MPV 10.2 fL fL (7.4-10.4) Neut % (Auto) 43.2 % % Lymph % (Auto) 48.0 % % Lamar % (Auto) 5.7 % % Eos % (Auto) 2.5 % % Baso % (Auto) 0.2 % % Neut # (Auto) 3.56 10^3/uL 10^3 /uL (1.8-7.7) Lymph # (Auto) 4.0 10^3/uL 10^3/ uL (0.8-4.8) Lamar # (Auto) 0.5 10^3/uL 10^3/ uL (0.2-0.9) Eos # (Auto) 0.2 10^3/uL 10^3/ uL (0.0-0.8) Baso # (Auto) 0.0 10^3/uL 10^3/ uL (0.0-0.1) Nucleated RBC % (a uto) 0 % % Nucleated RBCs # 0.0 /100WBC /100W BC Sodium 138 mmol/L mmol/L (136-145) Potassium 4.1 mmol/L mmol/L (3.5-5.1) Chloride 102 mmol/L mmol/L (98-107) Carbon Dioxide 21 mmol/L L mmol/ L (22-29) Anion Gap 19.1 H (5-19) BUN 8 mg/dL mg/dL (6-20) Creatinine 0.5 mg/dL mg/dL (0.5-0.9) GFR Calculation 136.0 mL/min H mL /min (90-130) Glucose 72 mg/dL mg/dL (65-115) Calculated Osmolal ity 283 mOsm/kg L mOs m/kg (285-295) Calcium 8.8 mg/dL mg/dL (8.5-10.5) Total Bilirubin 0.4 mg/dL mg/dL (0.15-1.2) AST 20 U/L U/L (0-32) ALT 12 U/L U/L (0-33) Alkaline Phosphata se 64 IU/L IU/L (35-105) Troponin T Baselin e 6 ng/L ng/L (0-10) Total Protein 6.5 g/dL L g/dL (6.6-8.7) Albumin 4.4 g/dL g/dL (3.5-5.2) Globulin 2.1 g/dL g/dL (1.3-4.6) Lipase 13 U/L U/L (13-60) Discharge Plan Discharge Patient Disposition: Home Clinical Impression: Chest pain, Hematemesis Condition: Stable Prescriptions: New Protonix 40 mg tablet,delayed release (DR/EC) 40 mg PO BID 30 Days Qty: 60 RF: 0 No Action sumatriptan succinate 100 mg tablet 100 mg PO Q2H PRN (Reason: Chest Pain) RF: 0 One Daily Women's 27-0.4 mg tablet PO DAILY RF: 0 vitamin B complex Tablet 1 tab PO DAILY RF: 0 collagen PO DAILY RF: 0 medroxyprogesterone [Depo-Provera] 150 mg/mL suspension 150 mg IM .every 90 days Qty: 1 RF: 3 nitroglycerin 0.4 mg tablet, sublingual 0.4 mg sublingual Q5M PRN (Reason: chest pain) 30 Days Qty: 30 RF: 3 escitalopram oxalate 20 mg tablet See Rx Instructions .ROUTE .COMPLEX Qty: 90 RF: 3 epinephrine [EpiPen 2-Cj] 0.3 mg/0.3 mL auto-injector 0.3 mg IM Q10M PRN (Reason: anaphylaxis) 30 Days Qty: 2 RF: 1 Discharge Orders: Discharge ED (Routine); Ordered 09/12/21 Ordered By: Caleb Olson Referrals: Molly Chen DO [Primary Care Provider] - Discharge Diet: Usual diet Discharge Activity: Resume usual activity Patient Instructions: Chest Pain (ED), Hematemesis (ED) Activity Restrictions/Additional Instructions: Thank you for visiting the emergency department. You were seen and evaluated for abdominal pain and chest pain as well as throwing up blood. The exact cause of your symptoms is unclear however as discussed requires further outpatient evaluation. Please follow-up with your primary care provider and gastroenterology. Please return to the emergency department for worsening symptoms or anything else that you are concerned about and feel needs emergency department evaluation. Coding Level of Care Code ED Finance Administrator for Neo Munoz
--- NOTE | 2021-09-12 16:24 | CTR_ITS ---
PROCEDURE INFORMATION: Exam: CT Abdomen And Pelvis With Contrast Exam date and time: 09/12/2021 4:24 PM Age: 41 years old Clinical indication: Nausea and vomiting; Abdominal pain; Generalized; Patient HX: Epigastric pain w/ n/v, HX of ulcers; Additional info: Epigastric abdominal pain TECHNIQUE: Imaging protocol: Computed tomography of the abdomen and pelvis with contrast. Radiation optimization: All CT scans at this facility use at least one of these dose optimization techniques: automated exposure control; mA and/or kV adjustment per patient size (includes targeted exams where dose is matched to clinical indication); or iterative reconstruction. Contrast material: OMNI 300; Contrast volume: 95 ml; Contrast route: INTRAVENOUS (IV); COMPARISON: CR XR chest 1V portable [id number] 09/12/2021 3:46 PM RADIATION DOSE METRICS: Total DLP (mGy-cm): 1674.13 FINDINGS: Liver: Hepatic steatosis. Gallbladder and bile ducts: Normal. No calcified stones. No ductal dilation. Pancreas: Normal. No ductal dilation. Spleen: Normal. No splenomegaly. Adrenal glands: Normal. No mass. Kidneys and ureters: Normal. No hydronephrosis. Stomach and bowel: Diverticulosis without diverticulitis. Appendix: No evidence of appendicitis. Intraperitoneal space: Unremarkable. No free air. No significant fluid collection. Vasculature: Unremarkable. No abdominal aortic aneurysm. Lymph nodes: Unremarkable. No enlarged lymph nodes. Urinary bladder: Unremarkable as visualized. Reproductive: Unremarkable as visualized. Bones/joints: Unremarkable. No acute fracture. Soft tissues: Unremarkable. CT/CT abdomen pelvis w con* [id number] IMPRESSION: 1. Negative for acute inflammatory process in the abdomen or pelvis. 2. Hepatic steatosis. 3. Diverticulosis without diverticulitis. Radiation Dose CTDIVOL = (mGy): DLP = 1674.13 (mGy-cm)
[2021-09-12 16:59] LABS: Basophils % 0.2 %; Eosinophils # 0.2 10^3/uL (0.0-0.8); Eosinophils % 2.5 %; Hematocrit 40.7 % (37.0-47.0); Hemoglobin 14.1 g/dL (11.5-15.3); Mean Corpuscular HGB Conc 34.6 g/dL (30.0-36.0); Mean Corpuscular Hemoglobin 32.6 pg (28.0-34.0); Mean Platelet Volume 10.2 fL (7.4-10.4); Monocytes # 0.5 10^3/uL (0.2-0.9); Monocytes % 5.7 %; Neutrophils # 3.56 10^3/uL (1.8-7.7); Neutrophils % 43.2 %; Nucleated Red Blood Cells % 0 %; Platelet Count 262 10^3/cmm (130-400); Red Blood Count 4.33 10^6/uL (4.1-5.3); Red Cell Distribution Width 12.6 % (12.1-15.1); White Blood Count 8.3 10^3/uL (4.0-10.0)
[2021-09-12] MEDS: ondansetron 2 mg/ML SDV 2 mL 4 MG IVP (17:08)
[2021-09-12] MEDS: sodium chloride 0.9% 1,000 ML 999 ML IV (17:08)
[2021-09-12] MEDS: iohexol 300 mg/mL 100 mL Btl IV (17:12)
[2021-09-12 17:20] LABS: Alanine Aminotransferase 12 U/L (0-33); Albumin Level 4.4 g/dL (3.5-5.2); Alkaline Phosphatase 64 IU/L (35-105); Aspartate Amino Transferase 20 U/L (0-32); Blood Urea Nitrogen 8 mg/dL (6-20); Calcium 8.8 mg/dL (8.5-10.5); Carbon Dioxide 21 mmol/L (22-29); Chloride 102 mmol/L (98-107); Globulin 2.1 g/dL (1.3-4.6); Glucose 72 mg/dL (65-115); Lipase 13 U/L (13-60); Osmolality Calculated 283 mOsm/kg (285-295); Sodium 138 mmol/L (136-145); Total Bilirubin 0.4 mg/dL (0.15-1.2); Total Protein 6.5 g/dL (6.6-8.7)
[2021-09-12 17:22] LABS: Troponin(5th) Baseline 6 ng/L (0-10)
[2021-09-12 17:23] LABS: Anion Gap 19.1 (5-19); Potassium 4.1 mmol/L (3.5-5.1)
--- NOTE | 2021-09-15 07:27 | DCPLANNER ---
manager electronic had message to schedule a follow up appointment for patient with general surgery. manager electronic emailed patients information to the nicole Otto at [facility] General Surgery / ENT clinic. Patients information will be printed and reviewed. Clinic will call patient with appointment information.
--- NOTE | 2021-10-09 13:56 | DCPLANNER ---
Patient had a follow up appointment scheduled with general surgery - patient did attend appointment.
== END 2021-09-12 19:00 | disposition home or self-care (01) ==
PROVIDERS: Emergency Medicine; Emergency Provider Emergency Medicine; PCP Family Medicine
DX: R07.9 Chest pain, unspecified (principal); K92.0 Hematemesis
CPT/HCPCS: 71045; 74177; 80053; 83690; 84484; 85025; 96361; 96374; 99284; J2405; J7030; Q9967

== ENCOUNTER → 2021-11-24 13:10 | Outpatient (BNVA) | payer BC, SELFPAY | PROVIDERS: PCP Family Medicine; Visit Provider Surgery | DX: Z20.822 Contact with and (suspected) exposure to COVID-19 (principal) | CPT/HCPCS: 87635 ==

== ENCOUNTER 2021-11-25 08:28 | Outpatient (CLI) | payer BC, SELFPAY ==
--- NOTE | 2021-11-25 08:45 | US_ITS ---
WS: [id number] RIGHT UPPER QUADRANT ULTRASOUND HISTORY: R10.9 - Unspecified abdominal pain COMPARISON: None available. Liver: 20.5 cm in length. Liver is moderately enlarged. No bile duct dilatation. No mass identified. Portal Vein: Normal hepatopetal flow with monophasic waveform. Gallbladder: Normally distended gallbladder with no stones or wall thickening. CBD: 0.6 cm Pancreas: Normal size and echogenicity. Right kidney: 11.7 cm in length. Normal size and echogenicity. No hydronephrosis or mass. Aorta and IVC: Unremarkable abdominal aorta and IVC. No ascites. US/US gall bladder [id number] IMPRESSION: 1. Moderately enlarged liver. Otherwise negative. 2. Negative gallbladder.
== END 2021-11-25 08:29 | disposition home or self-care (01) ==
LOC: RAD 08:34
PROVIDERS: PCP Family Medicine; Visit Provider Surgery
DX: R10.9 Unspecified abdominal pain (principal); R16.0 Hepatomegaly, not elsewhere classified
CPT/HCPCS: 76705

== ENCOUNTER 2021-11-27 07:40 | Day surgery (SDC) | payer BC, SELFPAY ==
[2021-11-27 07:55] LABS: OR HCG Qualitative Urine Negative (Negative)
--- NOTE | 2021-11-27 08:04 | P.ANESASSM_ITS ---
Pre-Anesthetic Assessment Height/Weight: Height 1.75 m Weight 90.718 kg Preop Diagnosis: Hematemesis Operation Date: 11/27/21 09:30 Proposed Procedures p EGD 34674 K92.0(Not Applicable) - Abbe Martinez MD Familial anesthetic complications: None Was Beta Dixie taken within 24 hours: N/A Was Clonidine taken within 24 hours: N/A Social Tobacco and No alcohol Exam alert, oriented x 3 and regular rate & rhythm Airway Submandibular: within normal limits Cervical ROM: within normal limits Mallampati: Class II Dentition: full Pulmonary Chronic Obstructive Pulmonary Disease CV/HEM Hypertension Metabolic Morbid Obesity Neuropsych Anxiety and Depression Anesthetic Plan ASA status: 2 Anesthesia: MAC Risk of > 500 ml blood loss (7ml/kg in children): No Medications/Allergies Home Medications Medication Instructions Recorded Confirmed Last Taken Type njuypicwimxw-Wp-cvur-minerals 27 1 tab PO DAILY tab 11/13/19 11/25/21 04/27/21 17:00 History mg-0.4 mg tablet (One Daily Women's) sumatriptan succinate 100 mg tablet 100 mg PO Q2H PRN 11/13/19 11/25/21 04/27/21 17:00 History vitamin B complex 1 tab PO DAILY 11/13/19 11/25/21 04/27/21 17:00 History medroxyprogesterone 150 mg/mL 150 mg IM .every 90 days #1 ml 03/12/21 11/25/21 04/27/21 17:00 Rx intramuscular suspension (Depo-Provera) nitroglycerin 0.4 mg sublingual 0.4 mg SUBLINGUAL Q5M PRN 30 Days 04/03/21 11/25/21 Unknown Rx tablet #30 tab epinephrine 0.3 mg/0.3 mL 0.3 mg (0.3 mL) IM Q10M PRN 30 05/09/21 11/25/21 Unknown Rx injection, auto-injector (EpiPen Days #2 ea 2-Cj) escitalopram oxalate 20 mg tablet 10 mg PO DAILY 11/25/21 11/25/21 Unknown History Allergies Allergy/AdvReac Type Severity Reaction Status Date / Time mold Allergy ALGY-Difficulty Verified 11/25/21 10:51 Breathing Sulfa (Sulfonamide Allergy ALGY-Hives Verified 11/25/21 10:51 Antibiotics) venom-wasp Allergy swelling Verified 11/25/21 10:51 [facility] Anesthesia Medical History Anxiety Atypical chest pain Coronary-myocardial bridge Endometriosis Left ventricular diastolic dysfunction Migraine No pertinent past medical history neghx: htn,dm,thyroid,dvt/pe PCP: Dr. Chen Smoking Surgical History H/O exploratory laparotomy (~01/10/07) Dx laparascopy, left oophorectomy, ablation of endometriosis. Findings: Dermoid cyst of left ovary, endometriosis on the posterior surface of the cervix. H/O removal of cyst Family History Mother Hypercholesteremia Ovarian cancer dx age 36 Uterine cancer dx age 36 Clotting disorder Bleeding disorder Stroke Cancer Lung disease Grandmother Stroke Paternal CAD (coronary artery disease) Family/Other Cancer Father Dementia Lung disease Denies family history of Colon cancer Diabetes Chronic kidney disease (CKD) Breast cancer Suicide Anesthesia complication Hypertension Thyroid disease Data Anesthesia Cardiac Studies: Echocardiogram Ultrasound 06/21/20
[2021-11-27 08:20] VITALS: BP 121/70; PULSE 80; RESP 18; TEMP 37.1; O2SAT 98
[2021-11-27] MEDS: sodium chloride 0.9% 1,000 ML 30 ML IV (08:28)
--- NOTE | 2021-11-27 08:51 | P.HP_ITS ---
Same Day Surgery H&P Indication for Procedure/HPI DATE OF PROCEDURE: November 27, 2021 CHIEF COMPLAINT/INDICATIONFOR SURGICAL PROCEDURE: vomiting of blood PREOP DIAGNOSIS: Hematemesis PLANNED PROCEDURE: Operation Date: 11/27/21 09:30 Proposed Procedures p EGD 92131 K92.0(Not Applicable) - Abbe Martinez MD 09/25/21 This is a 41 years old female patient with history of recurrent chest pain for the past 1 year and a half.? Patient also reports history of hematemesis twice over the past couple of weeks or so due to heavy drinking.? She reports no history of esophageal cancer and she is not on blood thinners, patient undergone recently a CT scan of the abdomen and pelvis on September 12, 2021 that showed 1. Negative for acute inflammatory process in the abdomen or pelvis. 2. Hepatic steatosis. 3. Diverticulosis without diverticulitis. Patient is referred to me for consideration of diagnostic EGD 09/26/22 Patient comes today fro diagnostic EGD due to hematemesis patient also had an ultrasound of the liver and gallbladder that showed 1.? Moderately enlarged liver. Otherwise negative. 2.? Negative gallbladder. ROS All systems all systems have been reviewed negative except as per the above or per problem list Medications/Allergies* Home Medications Medication Instructions Recorded Confirmed Type sjzhxolzslup-Vr-bbbx-minerals 27 1 tab PO DAILY tab 11/13/19 11/27/21 History mg-0.4 mg tablet (One Daily Women's) sumatriptan succinate 100 mg tablet 100 mg PO Q2H PRN 11/13/19 11/27/21 History vitamin B complex 1 tab PO DAILY 11/13/19 11/27/21 History escitalopram oxalate 20 mg tablet 10 mg PO DAILY 11/25/21 11/27/21 History Allergies/Adverse Reactions Allergy/AdvReac Type Severity Reaction Status Date / Time mold Allergy ALGY-Difficulty Verified 11/27/21 08:57 Breathing Sulfa (Sulfonamide Allergy ALGY-Hives Verified 11/27/21 08:57 Antibiotics) venom-wasp Allergy swelling Verified 11/27/21 08:57 Current Medications: Generic Name Dose Route Start Last Admin Trade Name Freq PRN Reason Stop Dose Admin Sodium Chloride 1,000 mls @ 30 mls/hr 11/27/21 08:00 11/27/21 08:28 Sodium Chloride 0.9% IV 11/28/21 07:59 30 mls/hr .Q24H GABY Administration Pertinent History/Comorbid Conditions* Medical History Anxiety Atypical chest pain Coronary-myocardial bridge Endometriosis Left ventricular diastolic dysfunction Migraine No pertinent past medical history neghx: htn,dm,thyroid,dvt/pe PCP: Dr. Chen Smoking Surgical History (Updated 03/19/21 @ 13:29 by Molly Wilkins, WORKERS COMPENSATION CLAIMS SUPERVISOR, WHNP) H/O exploratory laparotomy (~01/10/07) Dx laparascopy, left oophorectomy, ablation of endometriosis. Findings: Dermoid cyst of left ovary, endometriosis on the posterior surface of the cervix. H/O removal of cyst Family History (Updated 03/19/21 @ 15:34 by Nicole Fairchild RN) Ovarian cancer Mother dx age 36 CAD (coronary artery disease) Grandmother Clotting disorder Mother Dementia Father Hypercholesteremia Mother Bleeding disorder Mother Lung disease Mother Father Cancer Mother Family/Other Uterine cancer Mother dx age 36 Stroke Mother Grandmother Paternal Denies family history of Colon cancer Diabetes Chronic kidney disease (CKD) Breast cancer Suicide Anesthesia complication Hypertension Thyroid disease Pertinent Exam Findings alert, oriented x 3 and procedure specific exam findings (Abdominal examination nontender nondistended soft) Recommendations Surgery/Procedure today (EGD w poss bx) Other Plans: EGD w possible BX Coding Level of Care Code Acute Supervisor Graphite for Radhag Alexander
[2021-11-27 09:58] VITALS: BP 102/71; PULSE 93; RESP 18; TEMP 36.4; O2SAT 96
--- NOTE | 2021-11-27 09:59 | P.PCN_ITS ---
PACU note Exam: awake Disposition: discharged
--- NOTE | 2021-11-27 09:59 | PM.PACU ---
PACU note Exam: awake Disposition: discharged
[2021-11-27 10:16] VITALS: BP 120/77; PULSE 76; RESP 18; O2SAT 98
== END 2021-11-27 10:31 | disposition home or self-care (01) ==
PROVIDERS: Anesthesiology; PCP Family Medicine; Visit Provider Surgery
PROC: 0DJ08ZZ Inspection of Upper Intestinal Tract, Via Natural or Artificial Opening Endoscopic (ICD-10-PCS; CPT 43235; principal; 2021-11-27 09:30)
DX: K92.0 Hematemesis (principal); K76.0 Fatty (change of) liver, not elsewhere classified; K57.30 Diverticulosis of large intestine without perforation or abscess without bleeding; F41.9 Anxiety disorder, unspecified; K21.00 Gastro-esophageal reflux disease with esophagitis, without bleeding; K44.9 Diaphragmatic hernia without obstruction or gangrene; K44.1 Diaphragmatic hernia with gangrene; K29.70 Gastritis, unspecified, without bleeding; K29.80 Duodenitis without bleeding; E66.01 Morbid (severe) obesity due to excess calories; Z68.29 Body mass index [BMI] 29.0-29.9, adult; J44.9 Chronic obstructive pulmonary disease, unspecified
CPT/HCPCS: 43239; 84703; 88305; 88342; J2704; J7030

== ENCOUNTER → 2021-12-31 11:53 | Outpatient (BNVA) | payer BC, SELFPAY | PROVIDERS: PCP Family Medicine; Visit Provider Surgery | DX: Z20.822 Contact with and (suspected) exposure to COVID-19 (principal) | CPT/HCPCS: 87635 ==

== ENCOUNTER 2022-01-02 05:22 | Day surgery (SDC) | payer BC, SELFPAY ==
[2021-12-31 12:59] VITALS: BMI 29.2
[2022-01-02 05:57] VITALS: PULSE 71; RESP 18; TEMP 36.8; O2SAT 99
[2022-01-02 06:04] LABS: OR HCG Qualitative Urine Negative (Negative)
[2022-01-02] MEDS: sodium chloride 0.9% 1,000 ML 30 ML IV (06:09)
--- NOTE | 2022-01-02 06:54 | ANES.PREANE2 ---
Pre-Anesthetic Assessment Height/Weight: Height 1.75 m Weight 89.811 kg Temp Pulse Resp Pulse Ox 98.2 F 71 18 99 01/02/22 05:57 01/02/22 05:57 01/02/22 05:57 01/02/22 05:57 Preop Diagnosis: Blood in stool Operation Date: 01/02/22 07:00 Proposed Procedures p colonoscopy 82956/k92.1(Not Applicable) - Abbe Martinez MD Was Beta Dixie taken within 24 hours: N/A Was Clonidine taken within 24 hours: N/A Last intake: Intake Last Liquid Date 01/01/22 Last Liquid Time 20:30 Last Solid Date 12/31/21 Last Solid Time 17:30 Social Tobacco and No alcohol Exam alert, oriented x 3, clear to auscultation bilaterally and regular rate & rhythm Airway Submandibular: within normal limits Cervical ROM: within normal limits Mallampati: Class II Dentition: full History/ROS No significant history except as noted and No significant complaints Pulmonary Chronic Obstructive Pulmonary Disease CV/HEM Murmur None reported Hepatic None reported GI None reported Metabolic None reported Musc/skel None reported Neuropsych Anxiety and Depression Anesthetic Plan ASA status: 2 Anesthesia: Anesthesia Evaluation and MAC Risk of > 500 ml blood loss (7ml/kg in children): No Medications/Allergies Home Medications Medication Instructions Recorded Confirmed Last Taken Type gwfrlbzilusy-Ha-eqxw-minerals 27 1 tab PO DAILY tab 11/13/19 01/02/22 01/01/22 History mg-0.4 mg tablet (One Daily Women's) sumatriptan succinate 100 mg tablet 100 mg PO Q2H PRN 11/13/19 01/02/22 04/27/21 17:00 History vitamin B complex 1 tab PO DAILY 11/13/19 01/02/22 01/01/22 History medroxyprogesterone 150 mg/mL 150 mg IM .every 90 days #1 ml 03/12/21 01/02/22 12/30/21 Rx intramuscular suspension (Depo-Provera) epinephrine 0.3 mg/0.3 mL 0.3 mg (0.3 mL) IM Q10M PRN 30 05/09/21 01/02/22 Unknown Rx injection, auto-injector (EpiPen Days #2 ea 2-Cj) escitalopram oxalate 20 mg tablet 10 mg PO DAILY 11/25/21 01/02/22 01/01/22 History (Lexapro) pantoprazole 40 mg tablet,delayed 40 mg PO DAILY 30 Days #30 tab 11/27/21 01/02/22 01/01/22 Rx release (Protonix) sucralfate 1 gram tablet (Carafate) 1 g PO Q6H 84 Days #336 tab 11/27/21 01/02/22 01/01/22 Rx amoxicillin 500 mg capsule 1,000 mg PO BID 14 Days #56 cap 12/05/21 01/02/22 01/01/22 Rx clarithromycin 500 mg tablet 500 mg PO Q8H 14 Days #42 tab 12/05/21 01/02/22 01/01/22 Rx Allergies Allergy/AdvReac Type Severity Reaction Status Date / Time mold Allergy ALGY-Difficulty Verified 01/02/22 05:53 Breathing Sulfa (Sulfonamide Allergy ALGY-Hives Verified 01/02/22 05:53 Antibiotics) venom-wasp Allergy swelling Verified 01/02/22 05:53 Current Medications Generic Name Dose Route Start Last Admin Trade Name Freq PRN Reason Stop Dose Admin Sodium Chloride 1,000 mls @ 30 mls/hr 01/02/22 05:45 01/02/22 06:09 Sodium Chloride 0.9% IV 01/03/22 05:44 30 mls/hr .Q24H GABY Administration PFSH Anesthesia Medical History Anxiety Atypical chest pain Coronary-myocardial bridge Endometriosis Hematemesis Left ventricular diastolic dysfunction Migraine No pertinent past medical history neghx: htn,dm,thyroid,dvt/pe PCP: Dr. Chen Smoking Surgical History H/O exploratory laparotomy (~01/10/07) Dx laparascopy, left oophorectomy, ablation of endometriosis. Findings: Dermoid cyst of left ovary, endometriosis on the posterior surface of the cervix. H/O removal of cyst Family History Mother Hypercholesteremia Ovarian cancer dx age 36 Uterine cancer dx age 36 Clotting disorder Bleeding disorder Stroke Cancer Lung disease Grandmother Stroke Paternal CAD (coronary artery disease) Family/Other Cancer Father Dementia Lung disease Denies family history of Colon cancer Diabetes Chronic kidney disease (CKD) Breast cancer Suicide Anesthesia complication Hypertension Thyroid disease Data Anesthesia Cardiac Studies: Echocardiogram Ultrasound 06/21/20
--- NOTE | 2022-01-02 07:01 | P.HP_ITS ---
Same Day Surgery H&P Indication for Procedure/HPI DATE OF PROCEDURE: January 02, 2022 CHIEF COMPLAINT/INDICATIONFOR SURGICAL PROCEDURE: Blood in stool PREOP DIAGNOSIS: Blood in stool PLANNED PROCEDURE: Operation Date: 01/02/22 07:00 Proposed Procedures p colonoscopy 77665/k92.1(Not Applicable) - Abbe Martinez MD This is a pleasant 41-year and she does give history of blood in stool and she gives a history of diverticulosis of the sigmoid colon. Patient comes today for diagnostic colonoscopy ROS All systems have been reviewed negative all systems have been reviewed negative except as per the above or per problem list Medications/Allergies* Home Medications Medication Instructions Recorded Confirmed Type zvbefjnetkwc-Ov-zftm-minerals 27 1 tab PO DAILY tab 11/13/19 01/02/22 History mg-0.4 mg tablet (One Daily Women's) sumatriptan succinate 100 mg tablet 100 mg PO Q2H PRN 11/13/19 01/02/22 History vitamin B complex 1 tab PO DAILY 11/13/19 01/02/22 History escitalopram oxalate 20 mg tablet 10 mg PO DAILY 11/25/21 01/02/22 History (Lexapro) Allergies/Adverse Reactions Allergy/AdvReac Type Severity Reaction Status Date / Time mold Allergy ALGY-Difficulty Verified 01/02/22 07:04 Breathing Sulfa (Sulfonamide Allergy ALGY-Hives Verified 01/02/22 07:04 Antibiotics) venom-wasp Allergy swelling Verified 01/02/22 07:04 Current Medications: Generic Name Dose Route Start Last Admin Trade Name Freq PRN Reason Stop Dose Admin Sodium Chloride 1,000 mls @ 30 mls/hr 01/02/22 05:45 01/02/22 06:09 Sodium Chloride 0.9% IV 01/03/22 05:44 30 mls/hr .Q24H GABY Administration Pertinent History/Comorbid Conditions* Medical History Anxiety Atypical chest pain Coronary-myocardial bridge Endometriosis Hematemesis Left ventricular diastolic dysfunction Migraine No pertinent past medical history neghx: htn,dm,thyroid,dvt/pe PCP: Dr. Chen Smoking Surgical History (Updated 03/19/21 @ 13:29 by Molly Wilkins, ZACHARY, SUMAN) H/O exploratory laparotomy (~01/10/07) Dx laparascopy, left oophorectomy, ablation of endometriosis. Findings: Dermoid cyst of left ovary, endometriosis on the posterior surface of the cervix. H/O removal of cyst Family History (Updated 03/19/21 @ 15:34 by Nicole Fairchild RN) Ovarian cancer Mother dx age 36 CAD (coronary artery disease) Grandmother Clotting disorder Mother Dementia Father Hypercholesteremia Mother Bleeding disorder Mother Lung disease Mother Father Cancer Mother Family/Other Uterine cancer Mother dx age 36 Stroke Mother Grandmother Paternal Denies family history of Colon cancer Diabetes Chronic kidney disease (CKD) Breast cancer Suicide Anesthesia complication Hypertension Thyroid disease Pertinent Exam Findings alert, oriented x 3, clear to auscultation bilaterally, regular rate & rhythm and procedure specific exam findings (Abdominal examination nontender nondistended soft) Recommendations Surgery/Procedure today ( colonoscopy with possible biopsy) Other Plans: Plan of care; After thorough history and physical examination and reviewing the chart, plan to perform diagnostic colonoscopy. I discussed with the patient in details the risks,benefits,alternatives and indications.The risk of aspiration, bleeding, soft tissue injury, perforation of the colon and other potential concomitant complications were explained to the patient in details,also the potential need for Laproscoy/Laparotomy to repair any related complications including but not limited to colectomy and or Closotomy.The patient understood this well and did agree to proceed. Rationale was carefully and clearly discussed with the patient.Appropriate informed consent have been reviewed and signed All questions have been answered and all concerns have been addressed to patient's satisfaction. Verbal and written Instructions were given to the patient for colonoscopy prep Coding Level of Care Code Acute Poultry Offal Icer for Neo Munoz
[2022-01-02 07:29] VITALS: BP 97/61; PULSE 72; RESP 16; TEMP 36.4; O2SAT 94
--- NOTE | 2022-01-02 07:31 | ANE.PACU2 ---
Inpatient post-anesthesia follow up: Airway intact: Yes Vital signs: Temperature 97.5 F Pulse Rate 72 Respiratory Rate 16 Blood Pressure 97/61 Pulse Oximetry 94 Oxygen Delivery Me thod Room Air Oxygen Flow Rate Fraction of Inspir ed Oxygen Hydration adequate: Yes Nausea and vomiting: No Pain level: 1 Mental status: Baseline
[2022-01-02 07:40] VITALS: BP 102/74; PULSE 70; RESP 18; O2SAT 98
== END 2022-01-02 07:53 | disposition home or self-care (01) ==
PROVIDERS: Anesthesiology; PCP Family Medicine; Visit Provider Surgery
PROC: 0DJD8ZZ Inspection of Lower Intestinal Tract, Via Natural or Artificial Opening Endoscopic (ICD-10-PCS; CPT 45378; principal; 2022-01-02 07:00)
DX: K92.1 Melena (principal); F41.9 Anxiety disorder, unspecified; K57.30 Diverticulosis of large intestine without perforation or abscess without bleeding; D12.8 Benign neoplasm of rectum
CPT/HCPCS: 45380; 84703; 88305; J2370; J2704; J7030

== ENCOUNTER 2022-01-05 09:55 | Outpatient (CLI) | payer BC, SELFPAY ==
--- NOTE | 2022-01-05 10:00 | NM_ITS ---
WS: [id number] NUCLEAR MEDICINE HIDA SCAN WITH GALLBLADDER EJECTION FRACTION HISTORY: R10.11 - Right upper quadrant pain COMPARISON: Gallbladder ultrasound 11/25/2021 TECHNIQUE: The patient was intravenously injected with 7.7 mCi of TC99m Mebrofenin. Immediate imaging over the right upper quadrant was followed by 5 minute image and additional images for a total of 60 minutes. Mildly enlarged liver. Normal uptake within the liver. Activity identified in the gallbladder at 15 minutes and well distended by 60 minutes. Activity in the proximal small bowel was seen by 40 minutes. Good washout of the radiotracer from the liver by 60 minutes. The patient then drank 8 ounces of Ensure Plus. Ejection fraction at 60 minutes was 82%. Normal GB ej ection fraction is 35-75%. Post fatty meal symptoms: None. NM/NM hepatobiliary w phar* [id number] IMPRESSION: 1. Normal HIDA scan. 2. Normal gallbladder ejection fraction.
== END 2022-01-05 09:56 | disposition home or self-care (01) ==
PROVIDERS: PCP Family Medicine; Visit Provider Surgery
DX: R10.11 Right upper quadrant pain (principal)
CPT/HCPCS: 78227; A9537

== ENCOUNTER 2022-04-27 08:22 | Outpatient (CLI) | payer BC, SELFPAY ==
--- NOTE | 2022-04-27 08:45 | US_ITS ---
WS: [id number] ULTRASOUND PELVIS TECHNIQUE: Transabdominal. CLINICAL INFORMATION: R10.11 - Right upper quadrant pain LMP: : No. COMPARISON: None. FINDINGS: Uterus Orientation: Anteverted. Size: 6.8 cm x 3.2 cm x 1.8 cm Masses: None. Cervix: Normal . Endometrium: Normal. Endometrium thickness: 0.3 cm. Adnexa: RIGHT ovarian cyst with daughter cyst. RIGHT ovarian cyst measures 3.0 x 2.6 x 2.8 cm is main ly simple in appearance with a small amount of peripheral debris. Tiny LEFT ovarian remnant measuring 0.8x 0.6x 0.6 cm. History of prior LEFT femoral alessandra removal. Right ovary size: 3.6 cm x 3.0 cm x 2.7 cm. Right ovary volume: 15.1 ccm3 Left ovary size: 0.8 cm x 0.7 cm x 0.6 cm. Left ovary volume: 0.2 ccm3 Free fluid: Trace Other findings: None. US/US pelvic complete* [id number] IMPRESSION: 1. Somewhat small anteverted uterus measuring 6.4 x 3.2 x 1.8 cm 2. Endometrium measures 2.7 mm 3. RIGHT ovarian cyst with daughter cyst. RIGHT ovarian cyst measures 3.0 x 2 .6 x 2.8 cm with a small amount of peripheral debris. This can be followed up i n one to 2 menstrual cycles. 4. Tiny LEFT ovarian remnant measuring 0.8x 0.6x 0.6 cm. History of prior LEFT dermoid removal.. 5. Trace free fluid in the cul-de-sac.
== END 2022-04-27 08:23 | disposition home or self-care (01) ==
PROVIDERS: PCP Family Medicine; Visit Provider Obstetrics & Gynecology
DX: R10.11 Right upper quadrant pain (principal); R10.2 Pelvic and perineal pain; N83.291 Other ovarian cyst, right side
CPT/HCPCS: 76856

== ENCOUNTER → 2022-06-18 13:58 | Outpatient (BNVA) | payer BC, SELFPAY | PROVIDERS: PCP Family Medicine; Visit Provider Obstetrics & Gynecology | DX: N83.201 Unspecified ovarian cyst, right side (principal) | CPT/HCPCS: 76830 ==

== ENCOUNTER → 2022-06-24 09:29 | Outpatient (BNVA) | payer BC, SELFPAY | PROVIDERS: PCP Family Medicine; Visit Provider Nurse Practitioner Women's Health | DX: Z01.419 Encounter for gynecological examination (general) (routine) without abnormal findings (principal) | CPT/HCPCS: 87624 ==

== ENCOUNTER 2022-06-29 14:11 | Outpatient (CLI) | payer BC, SELFPAY ==
--- NOTE | 2022-06-29 14:14 | MM_ITS ---
WS: [email or web address] BILATERAL 3D TOMOSYNTHESIS DIGITAL SCREENING MAMMOGRAPHY WITH CAD CLINICAL INFORMATION: Z12.39 - Encounter for other screening for malignant neop... HISTORY: Screening mammogram. No current complaints. COMPARISON: May 01, 2021 TECHNIQUE: Bilateral CC and MLO views. FINDINGS: Scattered fibroglandular densities bilaterally. No suspicious focal mass, asymmetry, calcifications, or architectural distortion. No evidence of malignancy. A few incidental punctate calcifications. MM/[place] [id number] IMPRESSION: BI-RADS: 2-Benign FOLLOW UP: 1 Year Follow-up Recommend return to annual screening mammography.
== END 2022-06-29 14:12 | disposition home or self-care (01) ==
PROVIDERS: PCP Family Medicine; Visit Provider Nurse Practitioner Women's Health
DX: Z12.31 Encounter for screening mammogram for malignant neoplasm of breast (principal)
CPT/HCPCS: 77063; 77067

== ENCOUNTER 2023-07-22 14:56 | Outpatient (CLI) | payer BC, SELFPAY ==
--- NOTE | 2023-07-22 08:06 | MM_ITS ---
WS: [id number] SCREENING DIGITAL TOMOSYNTHESIS MAMMOGRAM WITH CAD HISTORY: Z12.31 - Encounter for screening mammogram for malignant ... COMPARISON: 06/29/2022 and 05/01/2021 Bilateral CC and MLO with tomosynthesis views submitted. Synthetic mammography reviewed. Computer aid ed detection analyzed. Breast composition: There are scattered areas of fibroglandular density. No suspicious masses, microc alcifications or architectural distortion. IMPRESSION: MM/[place] [id number] BI-RADS: 1-Negative FOLLOW UP: 1 Year Follow-up
== END 2023-07-22 14:57 | disposition home or self-care (01) ==
LOC: MOBLMAM 15:02
PROVIDERS: PCP Family Medicine; Visit Provider Nurse Practitioner Women's Health
DX: Z12.31 Encounter for screening mammogram for malignant neoplasm of breast (principal)
CPT/HCPCS: 77063; 77067

== ENCOUNTER → 2024-04-20 14:10 | Outpatient (BNVA) | payer BC, SELFPAY | PROVIDERS: PCP Family Medicine; Visit Provider Nurse Practitioner Family | DX: Z00.00 Encounter for general adult medical examination without abnormal findings (principal); M79.10 Myalgia, unspecified site | CPT/HCPCS: 80053; 80061; 84443; 85025; 86618; 86666; 86757 ==

== ENCOUNTER → 2024-08-10 13:30 | Outpatient (BNVA) | payer BC, SELFPAY | PROVIDERS: PCP Family Medicine; Visit Provider Podiatrist Foot & Ankle Surgery | DX: M79.671 Pain in right foot (principal); M20.11 Hallux valgus (acquired), right foot | CPT/HCPCS: 73630 ==

== ENCOUNTER 2024-08-29 11:39 | Outpatient (CLI) | payer BC, SELFPAY ==
--- NOTE | 2024-08-29 11:40 | MM_ITS ---
WS: [id number] VIEWS: MLO and CC views both breasts. 3D digital tomosynthesis is also included in this exam. Comparison made with prior exam of 05/01/2021, 06/29/2022, 07/22/2023.. Findings: There are scattered areas of fibroglandular density. New 5 mm nodule seen in the anterior LEFT breast on the cc view only. This is almost directly behind the nipple. No architectural distortion or suspicious calcification noted. The nodule is well-circums cribed. Regional ultrasound is suggested for further work-up. No other new finding in either breast. MM/MM scr BI tomosynthesis [id number] Impression: BI-RADS: 0 - Incomplete: Need additional imaging evaluation. FOLLOW-UP: Need Additional Imaging This mammogram was also analyzed by the Computer Aided Detection System R2 Imag e Chain Mortiser Operator.
== END 2024-08-29 11:40 | disposition home or self-care (01) ==
LOC: MOBLMAM 11:41
PROVIDERS: PCP Nurse Practitioner Women's Health; Visit Provider Nurse Practitioner Women's Health
DX: Z12.31 Encounter for screening mammogram for malignant neoplasm of breast (principal); R92.323 Mammographic fibroglandular density, bilateral breasts; N63.42 Unspecified lump in left breast, subareolar
CPT/HCPCS: 77063; 77067

== ENCOUNTER 2024-10-18 10:02 | Outpatient (CLI) | payer BC, SELFPAY ==
--- NOTE | 2024-10-18 10:16 | MM_ITS ---
WS: [id number] Left breast diagnostic 3D tomosynthesis digital mammogram, 10/18/2024 Clinical Data: R92.8 ABNORMAL MAMMO Comparison: 08/29/2024 Findings: Additional views in the ML, CC spot and with tomography do not show the questionable retroareolar nod ule in the left breast. No spiculated masses nor clustered calcifications are seen. MM/MM diag LT tomosynthesis [id number] Impression: 1. Negative left breast mammogram. 2. Return to annual screening mammograms. DENSITY: There are scattered areas of fibroglandular density. BIRADS: 1 - Negative. FOLLOW UP: 1 Year Follow-up The CAD checker cashier was used.
== END 2024-10-18 10:03 | disposition home or self-care (01) ==
LOC: RAD 10:04
PROVIDERS: Visit Provider Nurse Practitioner Women's Health
DX: Z12.31 Encounter for screening mammogram for malignant neoplasm of breast (principal); R92.322 Mammographic fibroglandular density, left breast
CPT/HCPCS: 77061; G0279